=== PATIENT | female | born 1985 | race Asian ===

== ENCOUNTER 2019-07-05 12:25 | Emergency (ER) | payer BC ==
[~2019-07-05] VITALS: Ht 152.4 cm; Wt 59.0 kg
[2019-07-05 12:31] VITALS: Ht 152.4 cm; Wt 59.0 kg
[2019-07-05 17:28] VITALS: BP 100/72
== END 2019-07-05 17:28 | disposition home or self-care (01) ==
LOC: ED 12:25
DX: R51 Headache (principal); R20.2 Paresthesia of skin; R53.1 Weakness
CPT/HCPCS: J1200; J2765

== ENCOUNTER 2019-07-13 16:58 | Emergency (ER) | payer BC ==
[~2019-07-13] VITALS: Ht 165.1 cm; Wt 61.7 kg
[2019-07-13 17:06] VITALS: Ht 165.1 cm; Wt 61.7 kg
[2019-07-13 19:48] VITALS: BP 99/71
== END 2019-07-13 19:48 | disposition home or self-care (01) ==
LOC: ED 16:58
DX: R68.84 Jaw pain (principal)